=== PATIENT | female | born 1960 | race Caucasian/White ===

== ENCOUNTER 2019-09-02 21:14 | Emergency (ER) | payer BC, OTHER ==
[2019-09-02] MEDS ORDERED: Acetaminophen 500 MG Tab PO ONE ×2 (21:58→22:16)
--- NOTE | 2019-09-02 22:13 | EDM.PDOC ---
ED HPI GENERAL MEDICAL PROBLEM - General Chief Complaint: General Stated Complaint: FEVER, JUST NOT GOOD Time Seen by Provider: 09/02/19 21:58 Source of Information: Reports: Patient History Limitations: Reports: No Limitations - History of Present Illness INITIAL COMMENTS - FREE TEXT/NARRATIVE: Patient is a 59-year-old female who presents to the emergency department this evening with a complaint of fever and fatigue. Patient states that fatigue is chronic but worse last couple days. Patient states she felt feverish and had chills since yesterday. She does have some sinus issues of chronic nature, however denies cough or mucus production. Patient states that she noticed her urine was little dark and she does have mild dysuria. Patient denies chest pain , shortness of breath, abdominal pain, bowel changes, out of country travel, headache, neck stiffness, nausea or vomiting. Onset: Gradual Duration: Day(s): Quality: Reports: Ache Severity: Mild Improves with: Reports: None Worsens with: Reports: None Associated Symptoms: Reports: Fever/Chills. Denies: Chest Pain, Cough, Headaches, Shortness of Breath - Related Data Allergies Allergy/AdvReac Type Severity Reaction Status Date / Time Penicillins Allergy Rash Verified 09/02/19 21:24 Home Meds: Home Meds Cephalexin [Keflex] 500 mg PO TID #21 capsule 09/02/19 [Rx] Gabapentin [Neurontin] 300 mg PO 1400,2100 09/02/19 [History] rOPINIRole [Requip] 1 mg PO 2100 09/02/19 [History] rOPINIRole [Requip] 2 mg PO 1400,2100 09/02/19 [History] ED ROS GENERAL - Review of Systems Review Of Systems: ROS reveals no pertinent complaints other than HPI. Constitutional: Reports: Fever, Chills, Malaise, Fatigue HEENT: Reports: Sinus Problem Respiratory: Reports: No Symptoms Cardiovascular: Reports: No Symptoms Endocrine: Reports: No Symptoms GI/Abdominal: Reports: No Symptoms. Denies: Abdominal Pain : Reports: Dysuria Musculoskeletal: Reports: No Symptoms Skin: Reports: No Symptoms Neurological: Reports: No Symptoms Psychiatric: Reports: No Symptoms Hematologic/Lymphatic: Reports: No Symptoms ED EXAM, GENERAL - Physical Exam Exam: See Below Exam Limited By: No Limitations General Appearance: Alert, WD/WN, No Apparent Distress Eye Exam: Bilateral Eye: Normal Inspection Nose: Other (Bilateral mucosal erythema without bogginess) Throat/Mouth: Normal Inspection, Normal Oropharynx, No Airway Compromise Head: Atraumatic, Normocephalic Neck: Normal Inspection, Supple, Non-Tender. No: Lymphadenopathy (L), Lymphadenopathy (R) Respiratory/Chest: No Respiratory Distress, Lungs Clear, Normal Breath Sounds, No Accessory Muscle Use, Chest Non-Tender Cardiovascular: Regular Rate, Rhythm, No Murmur GI/Abdominal: Normal Bowel Sounds, Soft, Non-Tender, No Organomegaly, No Distention, No Abnormal Bruit, No Mass Back Exam: Normal Inspection. No: CVA Tenderness (L), CVA Tenderness (R) Extremities: Normal Inspection Neurological: Alert, Oriented, Normal Cognition Psychiatric: Normal Affect, Normal Mood Skin Exam: Warm, Dry, Intact, Normal Color, No Rash Lymphatic: No Adenopathy Course - Vital Signs Last Recorded V/S: Last Vital Signs Temp 101.7 F H 09/02/19 22:24 Pulse 100 09/02/19 21:27 Resp 20 09/02/19 21:27 BP 138/70 09/02/19 21:27 Pulse Ox 96 09/02/19 21:27 - Orders/Labs/Meds Orders: Active Orders 24 hr Category Date Time Status CULTURE URINE [RM] Stat Lab 09/02/19 22:05 Received Labs: Laboratory Tests 09/02/19 Range/Units 22:05 Specimen Type . Urine Color Light yellow (YELLOW) Urine Appearance Turbid H (CLEAR) Urine pH 8.5 (5.0-9.0) Ur Specific [place] 1.020 (1.005-1.030) Urine Protein 30 H (NEGATIVE) mg/dL Urine Glucose (UA) Negative (NEGATIVE) mg/dL Urine Ketones Negative (NEGATIVE) mg/dL Urine Occult Blood Moderate H (NEGATIVE) Urine Nitrite Negative (NEGATIVE) Urine Bilirubin Negative (NEGATIVE) Urine Urobilinogen 0.2 (0.2-1.0) E.U./dL Ur Leukocyte Esterase Moderate H (NEGATIVE) Urine RBC 5-10 H (0-5) /HPF Urine WBC Packed (0-5) /HPF Ur Epithelial Cells Few /LPF Urine Bacteria Few (NONE TO FEW) /HPF Meds: Medications Discontinued Medications Generic Name Dose Route Start Last Admin Trade Name Freq PRN Reason Stop Dose Admin Acetaminophen 500 mg 09/02/19 21:58 09/02/19 22:22 Tylenol Extra Strength PO 09/02/19 21:59 500 mg ONETIME ONE Administration Acetaminophen 500 mg 09/02/19 22:16 09/02/19 22:23 Tylenol Extra Strength PO 09/02/19 22:17 500 mg ONETIME ONE Administration Ceftriaxone Sodium 1 gm 09/02/19 22:31 Rocephin IM 09/02/19 22:32 ONETIME ONE - Re-Assessments/Exams Free Text/Narrative Re-Assessment/Exam: 09/02/19 22:35 Patient now afebrile, vital signs stable, feels better. Patient given 1000 mg Tylenol in ER. Patient given 1 g Rocephin IM. Prescription for 500 mg cephalexin 3 times a day for 7 days. Patient will follow-up with PCP. Culture pending Departure - Departure Time of Disposition: 22:36 Disposition: Home, Self-Care 01 Condition: Good Clinical Impression: UTI, Urinary tract infectious disease - Discharge Information Instructions: Urinary Tract Infection, Adult, [id number], Urine Culture and Sensitivity Testing Referrals: PCP,Not In Area [Primary Care Provider] - Forms: ED Department Discharge Additional Instructions: Follow-up with PCP in next 2-3 days. Return to emergency department sooner if symptoms continue or worsen. Drink plenty of liquids. Take medication as directed - My Orders Last 24 Hours: My Active Orders 09/02/19 22:05 CULTURE URINE [RM] Stat - Assessment/Plan Last 24 Hours: My Active Orders 09/02/19 22:05 CULTURE URINE [RM] Stat Assessment:: Urinary tract infection Plan: Follow-up with PCP
[2019-09-02] MEDS ORDERED: cefTRIAXone 1 GM Vial IM ONE (22:31)
[2019-09-02] MEDS ORDERED: Cephalexin 250 MG Cap PO ONE (22:34)
[2019-09-02] MEDS ORDERED: Lidocaine 1% 20 ML MDV ONE (22:39)
== END 2019-09-02 22:55 | disposition home or self-care (01) ==
LOC: KA.ED 21:14
DX: N39.0 Urinary tract infection, site not specified (principal); Z88.0 Allergy status to penicillin
CPT/HCPCS: 81001; 87086; 87088; 87804; 99283; A9270; J0696